=== PATIENT | male | born 1945 | race Caucasian/White ===

== ENCOUNTER 2022-06-13 04:15 | Day surgery (SDC) | payer OTHER ==
[2022-06-11 11:49] VITALS: BMI 46.0
[2022-06-13 11:25] VITALS: TEMP 98
[2022-06-13 12:12] VITALS: BP 131/76; PULSE 60; RESP 18
== END 2022-06-13 12:10 | disposition home or self-care (01) ==
LOC: JASU-ENDO 04:15
PROVIDERS: ATTEND Internal Medicine Gastroenterology
PROC: 0DBN8ZX Excision of Sigmoid Colon, Via Natural or Artificial Opening Endoscopic, Diagnostic (ICD-10-PCS; principal; 2022-06-13 09:30)
DX: Z12.11 Encounter for screening for malignant neoplasm of colon (principal); D12.5 Benign neoplasm of sigmoid colon; K57.30 Diverticulosis of large intestine without perforation or abscess without bleeding; K64.8 Other hemorrhoids; I10 Essential (primary) hypertension
CPT/HCPCS: 88305-TC

== ENCOUNTER 2022-08-08 04:13 | Day surgery (SDC) | payer OTHER ==
[2022-08-07 07:49] VITALS: BMI 46.0
[2022-08-08 12:50] VITALS: BP 120/71; PULSE 77; RESP 18; TEMP 98
== END 2022-08-08 13:02 | disposition home or self-care (01) ==
LOC: JASU-ENDO 04:13
PROVIDERS: ATTEND Internal Medicine Gastroenterology
PROC: 0DBM8ZX Excision of Descending Colon, Via Natural or Artificial Opening Endoscopic, Diagnostic (ICD-10-PCS; principal; 2022-08-08 11:00)
DX: Z12.11 Encounter for screening for malignant neoplasm of colon (principal); K63.5 Polyp of colon; K64.8 Other hemorrhoids; K57.30 Diverticulosis of large intestine without perforation or abscess without bleeding; Z86.010 Personal history of colon polyps; I10 Essential (primary) hypertension
CPT/HCPCS: 88305-TC